=== PATIENT | female | born 1975 | race Two or more races ===

== ENCOUNTER 2024-06-21 08:50 | Day surgery (SDC) | payer MEDICAID, SELFPAY ==
--- NOTE | 2024-06-17 06:43 | EKG_ITS ---
[facility] Test Date: 2024-06-17 Pat Name: MAYANK ALMANZA Department: Room: - Gender: Female [employer] Director: LISA : 1975 Requested By: James Carbajal Order Number: [id number] Reading MD: James Carbajal Measurements Intervals [place] Rate: 50 P: 37 RI: 135 QRS: 8 QRSD: 74 T: 30 QT: 390 QTc: 359 Interpretive Statements SINUS BRADYCARDIA No previous ECG available for comparison /store/S0/[id number]
[2024-06-17 11:59] VITALS: BMI 26.6
[2024-06-17 12:37] LABS: Collection Type, Urine Clean Catch
[2024-06-17 13:28] LABS: Basophils % (Auto) 0 % (0-2.5); Eosinophils # (Auto) 0.2 Thou/mm3 (0.0-0.5); Eosinophils % (Auto) 3 % (0-10); Hematocrit 38.8 % (36.0-46.0); Immature Granulocytes % (Auto) 0 % (0-0); Immature Granulocytes Auto 0.01 Thou/mm3 (0.00-0.00); Lymphocytes # (Auto) 3.1 Thou/mm3 (1.0-4.8); Lymphocytes % (Auto) 46 % (10-50); Mean Corpuscular HGB Conc 33.5 g/dl (31.0-37.0); Mean Corpuscular Hemoglobin 30.9 pg (25.0-35.0); Mean Corpuscular Volume 92 fL (80-100); Monocytes # (Auto) 0.5 Thou/mm3 (0.0-0.8); Monocytes % (Auto) 7 % (0-12); Neutrophils % (Auto) 44 % (37-80); Nucleated Red Blood Cell % 0 /100 WBC (0); Platelet Count 224 Thou/mm3 (140-440); RDW Standard Deviation 46.2 fL (36.4-46.3); Red Blood Count 4.21 Miln/mm3 (4.00-5.20); White Blood Count 6.7 Thou/mm3 (3.6-11.0)
[2024-06-17 13:30] LABS: Bilirubin,Urine Negative (Negative); Blood,Urine Negative (Negative); Clarity,Urine Clear (Clear/Hazy); Color,Urine Lt-Yellow (Lt Yel-Yel); Glucose, Urine Negative (Negative); Ketones,Urine Negative (Negative); Leukocyte Esterase,Urine Negative (Negative); Nitrite,Urine Negative (Negative); Protein,Urine Negative (Neg - Trace); RBC,Urine 1 /hpf (0-3); Specific Gravity,Urine 1.023 (1.001-1.035); Squamous Epithelial Cell,Urine 4 /hpf (0-5); Urobilinogen,Urine Negative mg/dL (0.0-1.0); WBC,Urine 5 /hpf (0-5)
[2024-06-17 13:36] LABS: Beta HCG,Quantitative < 1 mIU/mL (<5.0)
[2024-06-17 13:37] LABS: Alanine Aminotransferase 18 U/L (10-49); Albumin, Serum 3.9 gm/dL (3.5-5.0); Albumin/Globulin Ratio 1.5 (1.2-2.2); Alkaline Phosphatase 66 U/L (46-116); Anion Gap 7 (7-16); Aspartate Amino Transferase 24 U/L (0-34); BUN/Creatinine Ratio 14 Ratio (12-20); Bilirubin,Total 1.3 mg/dL (0.3-1.2); Blood Urea Nitrogen 10 mg/dL (9-23); Calcium 8.8 mg/dL (8.3-10.6); Calcium (Corrected) 8.9 mg/dL (8.5-10.1); Carbon Dioxide 28.4 mMol/L (20.0-31.0); Chloride 108 mMol/L (98-107); Creatinine (Component) 0.7 mg/dL (0.6-1.3); Estimated Creatinine Clearance 88.5 mL/min (>60); Globulin 2.6 gm/dL (2.3-3.5); Glucose 79 mg/dL (74-106); Osmolality,Calculated 282 (275-295); Potassium 4.3 mMol/L (3.4-5.1); Sodium 143 mMol/L (136-145); Total Protein 6.5 gm/dL (5.7-8.2); eGFR > 60 See Note
[2024-06-21] VITALS (7 sets, daily range): BP systolic 106–127; BP diastolic 71–89; PULSE 55–86; RESP 13–20; TEMP 36.2–36.8; O2SAT 93–99; BMI 26.3
[2024-06-21] MEDS: RINGERS LACTATED 1000 ML 1,000 ML 60 ML IV (09:38)
--- NOTE | 2024-06-21 10:30 | SUR.PREOP ---
Patient expressed gratitude for prayer before their procedure.
--- NOTE | 2024-06-21 12:30 | SUR.PHASEI ---
1230: Pt. AAOx4, vitals stable, breathing unlabored, no complaint of pain or nausea, x4 dressing sites to ABD CDI, no active bleed noted, report received from Get RANKIN, Rolf RODRIGUEZ, and Zain SEALS.
--- NOTE | 2024-06-21 12:33 | ESOP_ITS ---
Date of Procedure 06/21/24 Pre Op Diagnosis Cholecystitis cholelithiasis Post Op Diagnosis Same with a large amount of adhesions from previous surgeries. Procedure Laparoscopic cholecystectomy on 06/21/2024 Laparoscopic lysis of adhesions Findings This patient had multiple previous abdominal surgeries. She had a large amount of adhesions between the liver and the diaphragm as well as small bowel and large bowel. She required extensive lysis of adhesions that increase the operating room time by about 50%. Gallbladder did have stones. The posterior view of safety was achieved. Cystic duct and cystic artery were identified separately. The right hepatic artery was noted to enter the liver through the gallbladder bed. It was protected. Procedure Description In the preop area the procedure was discussed with the patient including risks benefits and alternatives. The risks include possible laparotomy, bleeding, infection bile duct injury and bile leak. Patient may require ERCP for retained stone or a bile leak. The anesthesia risks are to be explained to the patient by the anesthesiologist. Informed consent was obtained. The patient was positioned supine on the operating table and general anesthesia was administered in a satisfactory manner by the anesthesiologist. A timeout procedure was carried out. The patient is positioned in the reverse Trendelenburg position with the right side up. Orogastric tube is introduced into the stomach to decompress the stomach. Prophylactic antibiotics were given in timely manner. Antiembolism measures were taken. The abdomen chest and groin regions were prepped and draped in usual manner. A supraumbilical vertical incision was made and deepened through the layers of abdominal wall and open laparoscopic procedure is carried out. The balloon catheter was introduced and pneumoperitoneum is achieved. A 30? scope was used. Under direct vision right subxiphoid, midclavicular and anterior axillary line trochars were introduced. The gallbladder is then lifted up and a laparoscopic lysis of adhesions was carried out. The gallbladder is freed from the adhesions and the magi hepatis is exposed. The triangle of Calot is gently dissected and the artery to cystic duct is divided with harmonic ultrasonic jose. There is a significant amount of scar chronic scar tissue in the magi hepatis that made the dissection and procedures much slower. The posterior view of safety was achieved. The cystic artery and cystic duct are identified individually and they were ligated close to the gallbladder with hemoclips. There was an accessory cystic artery as well as multiple branches of the cystic artery proper. They were all individually controlled and divided. The cystic artery and the cystic duct are divided between the hemoclips close to the gallbladder. Care was taken to avoid tenting of the common duct. There is a significant length of cystic duct stump towards the common bile duct. The gallbladder is dissected and lifted from the liver bed using harmonic ultrasonic jose. The gallbladder bed hemostasis is achieved. The gallbladder is retrieved out of the peritoneal cavity in a specimen bag. The balloon cannula is reintroduced and pneumoperitoneum is reestablished. The peritoneal cavity is thoroughly irrigated with sterile saline solution and hemostasis again ascertained. All the cannulas are removed under direct vision there is no bleeding from the cannula sites. The linea alba repair is carried out with the 0 Vicryl continuous suture. The subcutaneous tissues approximated by a 3-0 chromic and skin by 4-0 monocril subcuticular stitch. For the rest of the trocar site incisions are closed in 2 layers with a 3-0 chromic and 4-0 monocril subcuticular stitch. Steri-Strips are applied. Sterile dressings are applied. Complications none. Patient is transferred to the recovery room in a satisfactory condition. Anesthesia GETA Drains None. Implants None. Pathology / specimen Other (Gallbladder with contents) Estimated Blood Loss 10 Condition Stable Disposition PACU Surgeon James Carbajal MD Surgical Staff Operation Date: 06/21/24 11:15 Case Staff CONDITIONING YARD SUPERVISOR: Rolf Capellan RNauto air conditioning mechanic: Beverley Boss RN surgical orderly
[2024-06-21] MEDS: fentaNYL CIT INJ 50 mCg/ML AMP 2ML IV (12:44)
--- NOTE | 2024-06-21 13:20 | SUR.PHASEII ---
1320: Pt. AAOx4, vitals stable, breathing unlabored, no complaint of pain or nausea, x4 dressing to ABD CDI, no active bleed noted, pt. tolerated sips of water well, pt. ambulated to wheelchair with steady gait and no assist, no complications. Gave discharge instructions to the pt. and her ride, both verbalized understanding and had no further questions. Pt. left with all personal belongings.
== END 2024-06-21 13:20 | disposition home or self-care (01) ==
PROVIDERS: Anesthesiology; PCP Physician Assistant; Referring Provider Specialist; Visit Provider Specialist
PROC: 0FT44ZZ Resection of Gallbladder, Percutaneous Endoscopic Approach (ICD-10-PCS; CPT 47562; principal; 2024-06-21 11:15)
DX: K80.10 Calculus of gallbladder with chronic cholecystitis without obstruction (principal); K66.0 Peritoneal adhesions (postprocedural) (postinfection); Z01.810 Encounter for preprocedural cardiovascular examination
CPT/HCPCS: 47562; 36415; 80053; 81001; 84702; 85025; 85730; 93005; A4217; A4649; J0131; J1100; J2250; J2371; J2405; J2704; J3010; J3490; J7120; A9270; J1596